=== PATIENT | female | born 1980 | race Hispanic/Latino ===

== ENCOUNTER 2018-05-28 21:55 | Emergency (ER) | payer OTHER ==
--- OUTSIDE RECORDS SUMMARY | 2018-05-28 21:58 | XMS REPORT ---
:1980 Author Organization eClinicalWorks Care Team Providers Name Role Phone Airam Lopez Provider Role Unavailable Allergies, Adverse Reactions, Alerts Substance Reaction Event Type N.K.D.A. Info Not Available Non Drug Allergy Problems Problem Type Condition Code Onset Dates Condition Status Problem Depression with anxiety F41.8 Active Problem Primary insomnia F51.01 Active Problem Allergic rhinitis J30.9 Active Assessment Encounter for general adult medical Z00.00 Active examination without abnormal findings Problem BMI 30.0-30.9,adult Z68.30 Active Medications Medication Code Code Instructions Start End Status Dosage System Date Date Metoprol[place] [facility] [place] 54113241899 25 MG Orally Active 1 tablet with Tartrate Twice a day food Clonazepam [facility] [place] 26143120506 0.5 MG Orally Active 1 tablet at Once a day bedtime Triamcinolone [facility] [place] 18847274470 0.1 % August 17, Active 1 application Acetonide Externally 2018 to affected Twice a day area Results No Known Results Summary Purpose eClinicalWorks Submission
--- OUTSIDE RECORDS SUMMARY | 2018-05-28 21:58 | XMS REPORT ---
:1980 Author Organization eClinicalWorks Care Team Providers Name Role Phone Airam Lopez Provider Role Unavailable Allergies No Known Allergies Problems Problem Type Condition Code Onset Dates Condition Status Problem Primary insomnia F51.01 Active Problem BMI 30.0-30.9,adult Z68.30 Active Problem Depression with anxiety F41.8 Active Medications No Known Medications Results No Known Results Summary Purpose eClinicalJetlore Submission
--- OUTSIDE RECORDS SUMMARY | 2018-05-28 21:58 | XMS REPORT ---
:1980 Author Organization eClinicalWorks Care Team Providers Name Role Phone [place] Provider Role Unavailable Allergies No Known Allergies Problems Problem Type Condition Code Onset Dates Condition Status Problem Depression with anxiety F41.8 Active Problem Primary insomnia F51.01 Active Problem Allergic rhinitis J30.9 Active Problem BMI 30.0-30.9,adult Z68.30 Active Medications No Known Medications Results No Known Results Summary Purpose eClinicalWorks Submission
--- OUTSIDE RECORDS SUMMARY | 2018-05-28 21:58 | XMS REPORT ---
:1980 Author Organization eClinicalWorks Care Team Providers Name Role Phone Airam Lopez Provider Role Unavailable Allergies, Adverse Reactions, Alerts Substance Reaction Event Type N.K.D.A. Info Not Available Non Drug Allergy Problems Problem Type Condition Code Onset Dates Condition Status Problem Primary insomnia F51.01 Active Problem BMI 30.0-30.9,adult Z68.30 Active Problem Depression with anxiety F41.8 Active Assessment Acute tonsillitis due to other J03.80 Active specified organisms Assessment Depression with anxiety F41.8 Active Assessment Other specified bacterial agents as B96.89 Active the cause of diseases classified elsewhere Medications Medication Code Code Instructions Start End Status Dosage System Date Date Duloxetine HCl ND 66627899355 30 MG Orally Nov 02, Active 1 capsule Once a day 2017 Fluconazole ND 21328568044 150 MG Orally Nov 02Oct Active 1 tablet Once a day 2017 Triamcinolone ND 05722110585 0.1 % August 17 1 application Acetonide Externally 2018 to affected Twice a day area Amoxicillin ND 24604205945 875 MG Orally Nov 02Oct Active 1 tablet every 12 hrs 2017 Results Name Result Date Reference Range Unit Abnormality Flag STREP A RAPID ----Result N [id number] Summary Purpose eClinicalWorks Submission
--- OUTSIDE RECORDS SUMMARY | 2018-05-28 21:58 | XMS REPORT ---
:1980 Author Organization eClinicalWorks Care Team Providers Name Role Phone Airam Lopez Provider Role Unavailable Allergies, Adverse Reactions, Alerts Substance Reaction Event Type N.K.D.A. Info Not Available Non Drug Allergy Problems Problem Type Condition Code Onset Dates Condition Status Problem Primary insomnia F51.01 Active Problem BMI 30.0-30.9,adult Z68.30 Active Problem Depression with anxiety F41.8 Active Assessment Depression with anxiety F41.8 Active Medications Medication Code Code Instructions Start End Status Dosage System Date Date Duloxetine HCl [facility] 50400838720 30 MG Orally Nov 02, Active 1 capsule Once a day 2017 Metoprolol ND 81367430277 25 MG Orally Active 1 tablet with Tartrate Twice a day food Triamcinolone [facility] 81947977548 0.1 % August 17, Active 1 application Acetonide Externally 2018 to affected Twice a day area BusPIRone HCl ND 92890796992 5 MG Orally Sept Active 1 tablet Twice a day 2017 Clonazepam [facility] 93942501982 0.5 MG Orally Active 1 tablet at Once a day bedtime Results No Known Results Summary Purpose eClinicalWorks Submission
--- OUTSIDE RECORDS SUMMARY | 2018-05-28 21:58 | XMS REPORT ---
:1980 Author Organization eClinicalWorks Care Team Providers Name Role Phone Airam Lopez Provider Role Unavailable Allergies, Adverse Reactions, Alerts Substance Reaction Event Type N.K.D.A. Info Not Available Non Drug Allergy Problems Problem Type Condition Code Onset Dates Condition Status Problem BMI 30.0-30.9,adult Z68.30 Active Assessment Eczema, unspecified type L30.9 Active Problem Primary insomnia F51.01 Active Assessment BMI 30.0-30.9,adult Z68.30 Active Assessment Primary insomnia F51.01 Active Medications Medication Code Code Instructions Start End Status Dosage System Date Date Triamcinolone [facility] 87271457870 0.1 % August 17, Active 1 application Acetonide Externally 2018 to affected Twice a day area Results No Known Results Summary Purpose eClinicalWorks Submission
--- OUTSIDE RECORDS SUMMARY | 2018-05-28 21:58 | XMS REPORT ---
:1980 Author Organization eClinicalWorks Care Team Providers Name Role Phone Airam Lopez Provider Role Unavailable Allergies, Adverse Reactions, Alerts Substance Reaction Event Type N.K.D.A. Info Not Available Non Drug Allergy Problems Problem Type Condition Code Onset Dates Condition Status Problem Primary insomnia F51.01 Active Problem BMI 30.0-30.9,adult Z68.30 Active Problem Depression with anxiety F41.8 Active Assessment Fever, unspecified fever cause R50.9 Active Assessment Tonsillitis J03.90 Active Medications Medication Code Code Instructions Start End Status Dosage System Date Date Metoprolol [facility] 12624597670 25 MG Orally Active 1 tablet with Tartrate Twice a day food Duloxetine HCl [facility] 42167993386 30 MG Orally Active 1 capsule Once a day Clonazepam [facility] 13795009096 0.5 MG Orally Active 1 tablet at Once a day bedtime BusPIRone HCl [facility] 54063928856 5 MG Orally Sept Active 1 tablet Twice a day [address] [facility] 73977889391 875 MG Orally Dec 19Dec Active 1 tablet every 12 hrs [address] [facility] 51654562064 0.1 % August 17, Active 1 application Acetonide Externally 2018 to affected Twice a day area Results Name Result Date Reference Range Unit Abnormality Flag Rapid Strep Summary Purpose eClinicalWorks Submission
[2018-05-29] MEDS ORDERED: MECLIZINE HCL 12.5 MG TAB ONE (02:04)
[2018-05-29 02:21] LABS: Absolute Lymphocytes (CBC) 2.1 K/uL (0.7-4.9); Absolute Monocytes 0.5 K/uL (0.1-1.3); Absolute Neutrophil 4.7 K/uL (1.8-8.0); Basophils % 0.6 % (0-1.3); Hematocrit 39.9 % (36.0-45.0); Lymphocytes % 27.6 % (15.3-44.8); MPV 8.6 fL (7.6-11.3); Monocytes % 6.8 % (3.3-12.3); RBC Red Blood Cell Count 4.52 M/uL (3.86-4.86)
[2018-05-29 02:57] LABS: ALT/SGPT 23 U/L (12-78); AST/SGOT 14 U/L (15-37); Albumin 3.8 g/dL (3.4-5.0); Alkaline Phosphatase 79 U/L (45-117); BUN Blood Urea Nitrogen 14 mg/dL (7-18); Bicarbonate 25 mmol/L (21-32); Bilirubin Direct < 0.1 mg/dL (0-0.2); Bilirubin Total 0.2 mg/dL (0.2-1.0); Glucose Level 103 mg/dL (74-106); Potassium 3.5 mmol/L (3.5-5.1); Sodium Level 141 mmol/L (136-145); Troponin (Emerg Dept Use Only) < 0.02 ng/mL (0.0-0.045)
[2018-05-29 03:33] LABS: Urine Blood NEGATIVE (NEG); Urine Glucose NEGATIVE (NEG); Urine Protein NEGATIVE (NEG); Urine pH 5.5 (5.0-7.0)
--- NOTE | 2018-05-29 05:49 | ER ---
Nurse's Notes [facility] Name: Blaire Horowitz Age: 37 yrs Sex: Female : 1980 Arrival Date: 05/28/2018 Time: 22:09 Bed 17 Private MD: Diagnosis: Dizziness and giddiness;Chest pain, unspecified Presentation: 05/28 22:31 Presenting complaint: Patient states: Pt reports she has been having elevated blood ea pressure with tingling left side of the face that's started today. Reports she has been having vertigo when she lays down. Transition of care: patient was not received from another setting of care. Onset of symptoms. Risk Assessment: Do you want to hurt yourself or someone else? Patient reports no desire to harm self or others. Initial Sepsis Screen: Does the patient meet any 2 criteria? No. Patient's initial sepsis screen is negative. Does the patient have a suspected source of infection? No. Patient's initial sepsis screen is negative. Care prior to arrival: None. 22:31 Method Of Arrival: Ambulatory ea 22:31 Acuity: DAVI 3 ea Triage Assessment: 22:34 General: Appears uncomfortable, Behavior is calm, cooperative, appropriate for age. ea Pain:. Pain: Denies pain. Neuro: Level of Consciousness is awake, alert, obeys commands, Oriented to person, place, time, situation. Cardiovascular: Patient's skin is warm and dry. Respiratory: Airway is patent Respiratory effort is even, unlabored, Respiratory pattern is regular, symmetrical. 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 - Social history:: Smoking status: Patient/guardian denies using tobacco. - Ebola Screening: : No symptoms or risks identified at this time. - Family history:: not pertinent. - Hospitalizations: : No recent hospitalization is reported. Screenin/12 00:58 Abuse screen: Denies threats or abuse. Denies injuries from another. Nutritional ed1 screening: No deficits noted. Tuberculosis screening: No symptoms or risk factors identified. Fall Risk None identified. Assessment: 00:58 General: Appears in no apparent distress. Behavior is calm, cooperative. Pain: Denies ed1 pain. Neuro: Level of Consciousness is awake, alert, obeys commands, Oriented to person, place, time, situation, Reports dizziness. Cardiovascular: Denies chest pain, Heart tones S1 S2 present. Respiratory: Airway is patent Respiratory effort is even, unlabored, Respiratory pattern is regular, symmetrical, Breath sounds are clear bilaterally. GI: Abdomen is non-distended, Bowel sounds present X 4 quads. Abd is soft and non tender X 4 quads. : No signs and/or symptoms were reported regarding the genitourinary system. EENT: No signs and/or symptoms were reported regarding the EENT system. Derm: Skin is intact, is healthy with good turgor, Skin is dry, Skin is normal, Skin temperature is warm. 02:44 Reassessment: Patient appears in no apparent distress at this time. Patient and/or ed1 family updated on plan of care and expected duration. Pain level reassessed. Patient is alert, oriented x 3, equal unlabored respirations, skin warm/dry/pink. Patient denies pain at this time. Patient states symptoms have not improved. 03:45 Reassessment: Patient appears in no apparent distress at this time. No changes from ed1 previously documented assessment. Patient and/or family updated on plan of care and expected duration. Pain level reassessed. Patient is alert, oriented x 3, equal unlabored respirations, skin warm/dry/pink. 04:49 Reassessment: Patient appears in no apparent distress at this time. No changes from rr5 previously documented assessment. Patient and/or family updated on plan of care and expected duration. Pain level reassessed. Patient is alert, oriented x 3, equal unlabored respirations, skin warm/dry/pink. 06:14 Reassessment: Patient appears in no apparent distress at this time. Patient and/or ed1 family updated on plan of care and expected duration. Pain level reassessed. Patient is alert, oriented x 3, equal unlabored respirations, skin warm/dry/pink. Patient states feeling better. Patient states symptoms have improved. Vital Signs: 05/28 22:35 BP 123 / 95; Pulse 103; Resp 18; Temp 97.2; Pulse Ox 98% on R/A; Weight 70.31 kg; ea Height 5 ft. 2 in. (157.48 cm); 03/12 00:58 BP 120 / 79; Pulse 95; Resp 17; Pulse Ox 100% on R/A; Pain 0/10; ed1 02:44 BP 119 / 83; Pulse 79; Resp 18; Pulse Ox 99% on R/A; Pain 0/10; ed1 03:45 BP 125 / 76; Pulse 80; Resp 17; Pulse Ox 99% on R/A; Pain 0/10; ed1 04:49 BP 128 / 76; Pulse 73; Resp 16; Pulse Ox 99% on R/A; Pain 0/10; rr5 06:14 BP 124 / 79; Pulse 81; Resp 17; Temp 97.2(O); Pulse Ox 99% on R/A; Pain 0/10; ed1 03/11 22:35 Body Mass Index 28.35 (70.31 kg, 157.48 cm) ea ED Course: 05/28 22:09 Patient arrived in ED. am2 22:33 Triage completed. ea 22:35 Arm band placed on right wrist. Patient placed in waiting room. ea 03/12 01:03 Osbaldo Fleming MD is Attending Physician. wa 01:07 Lilliana Massey, OCTAVIO is Primary Nurse. ed1 02:11 Inserted saline lock: 20 gauge in right antecubital area, using aseptic technique. ed1 Blood collected. Patient maintains SpO2 saturation greater than 95% on room air. 02:23 Chest Pa And Lat (2 Views) XRAY In Process Unspecified. EDMS 02:27 Patient moved to radiology via wheelchair. kw 02:27 X-ray completed. Patient tolerated procedure well. kw 02:27 Patient moved back from radiology. kw 04:00 CT Head Brain wo Cont In Process Unspecified. EDMS 05:47 Adama Argueta MD is Referral Physician. wa 06:14 Patient has correct armband on for positive identification. vehicle monitor technician on. Pulse ed1 ox on. NIBP on. 06:14 No provider procedures requiring assistance completed. IV discontinued, intact, ed1 bleeding controlled, No redness/swelling at site. Pressure dressing applied. Administered Medications: 02:31 Drug: Meclizine 25 mg Route: PO; rr5 06:17 Follow up: Response: No adverse reaction; Marked relief of symptoms ed1 Outcome: 05:48 Discharge ordered by MD. alfaro 06:14 Discharged to home ambulatory. ed1 06:14 Condition: good 06:14 Discharge instructions given to patient, Instructed on discharge instructions, follow up and referral plans. medication usage, Demonstrated understanding of instructions, follow-up care, medications, Prescriptions given X 3. 06:18 Patient left the ED. ed1 Signatures: Dispatcher [employer] EDMS Lilliana Massey, RN RN ed1 Yocasta Alegre Amanda am2 Heather Jim RN RN ea Osbaldo Fleming MD MD wa Roque, Raymond RN RN rr5
--- NOTE | 2018-05-29 05:49 | EDPHYS ---
Physician Documentation [facility] Name: Blaire Horowitz Age: 37 yrs Sex: Female : 1980 Arrival Date: 05/28/2018 Time: 22:09 Bed 17 Private MD: ED Physician Osbaldo Fleming HPI: 05/29 03:51 This 37 yrs old Female presents to ER via Ambulatory with complaints of wa Dizziness, Chest Pain. 03:51 The patient presents with sense of spinning, when turns head to left. Onset: The wa symptoms/episode began/occurred 5 day(s) ago. Context: occurred at home, occurred while the patient was cannot recall. just prior to the episode the patient experienced no apparent symptoms. Modifying factors: The symptoms are alleviated by nothing, the symptoms are aggravated by movement of head, to the left. Associated signs and symptoms: Pertinent positives: chest pain, sensation of fullness in L ear, Pertinent negatives: agitation, ataxia, blurred vision, diaphoresis, head injury, headache, nausea, near-syncope, numbness, palpitations, seizure, syncope, tingling, vomiting. Severity of symptoms: At their worst the symptoms were moderate in the emergency department the symptoms have improved moderately. Patient's baseline: Neuro: alert and fully oriented, Motor: no deficits, Ambulation: walks without assistance, Speech: normal, The patient has a previous history of none. The patient has not experienced similar symptoms in the past. The patient has not recently seen a physician. vague description of chest pain. states last a few min at a time. mid sternal. denies CP at this presentation. 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 - Social history:: Smoking status: Patient/guardian denies using tobacco. - Ebola Screening: : No symptoms or risks identified at this time. - Family history:: not pertinent. - Hospitalizations: : No recent hospitalization is reported. ROS: 05/29 03:54 Constitutional: Negative for fever, chills, and weight loss, Eyes: Negative for injury, wa pain, redness, and discharge, ENT: Negative for injury, pain, and discharge, Neck: Negative for injury, pain, and swelling, Respiratory: Negative for shortness of breath, cough, wheezing, and pleuritic chest pain, Abdomen/GI: Negative for abdominal pain, nausea, vomiting, diarrhea, and constipation, Back: Negative for injury and pain, : Negative for injury, bleeding, discharge, and swelling, MS/Extremity: Negative for injury and deformity, Skin: Negative for injury, rash, and discoloration, Neuro: Negative for headache, weakness, numbness, tingling, and seizure. Cardiovascular: Positive for chest pain, Negative for edema, orthopnea, palpitations, paroxysmal nocturnal dyspnea. Respiratory: Negative for cough, shortness of breath. Neuro: Positive for dizziness, Negative for altered mental status, tremor, visual changes, weakness. All other systems are negative. Exam: 03:55 Constitutional: This is a well developed, well nourished patient who is awake, alert, wa and in no acute distress. Head/Face: Normocephalic, atraumatic. Eyes: Pupils equal round and reactive to light, extra-ocular motions intact. Lids and lashes normal. Conjunctiva and sclera are non-icteric and not injected. Cornea within normal limits. Periorbital areas with no swelling, redness, or edema. ENT: Nares patent. No nasal discharge, no septal abnormalities noted. Tympanic membranes are normal and external auditory canals are clear. Oropharynx with no redness, swelling, or masses, exudates, or evidence of obstruction, uvula midline. Mucous membranes moist. Neck: Trachea midline, no thyromegaly or masses palpated, and no cervical lymphadenopathy. Supple, full range of motion without nuchal rigidity, or vertebral point tenderness. No Meningismus. Chest/axilla: Normal chest wall appearance and motion. Nontender with no deformity. No lesions are appreciated. Respiratory: Lungs have equal breath sounds bilaterally, clear to auscultation and percussion. No rales, rhonchi or wheezes noted. No increased work of breathing, no retractions or nasal flaring. Abdomen/GI: Soft, non-tender, with normal bowel sounds. No distension or tympany. No guarding or rebound. No evidence of tenderness throughout. Back: No spinal tenderness. No costovertebral tenderness. Full range of motion. Skin: Warm, dry with normal turgor. Normal color with no rashes, no lesions, and no evidence of cellulitis. MS/ Extremity: Pulses equal, no cyanosis. Neurovascular intact. Full, normal range of motion. Psych: Awake, alert, with orientation to person, place and time. Behavior, mood, and affect are within normal limits. 03:55 Cardiovascular: Rate: normal, Rhythm: regular, Pulses: no pulse deficits are appreciated, Heart sounds: normal, Edema: is not appreciated, JVD: is not appreciated. 03:55 Neuro: Orientation: is normal, Mentation: is normal, Cranial nerves: grossly normal, Cerebellar function: is grossly normal, Motor: is normal, Gait: is steady. Vital Signs: 05/28 22:35 BP 123 / 95; Pulse 103; Resp 18; Temp 97.2; Pulse Ox 98% on R/A; Weight 70.31 kg; ea Height 5 ft. 2 in. (157.48 cm); 05/29 00:58 BP 120 / 79; Pulse 95; Resp 17; Pulse Ox 100% on R/A; Pain 0/10; ed1 02:44 BP 119 / 83; Pulse 79; Resp 18; Pulse Ox 99% on R/A; Pain 0/10; ed1 03:45 BP 125 / 76; Pulse 80; Resp 17; Pulse Ox 99% on R/A; Pain 0/10; ed1 04:49 BP 128 / 76; Pulse 73; Resp 16; Pulse Ox 99% on R/A; Pain 0/10; rr5 06:14 BP 124 / 79; Pulse 81; Resp 17; Temp 97.2(O); Pulse Ox 99% on R/A; Pain 0/10; ed1 05/28 22:35 Body Mass Index 28.35 (70.31 kg, 157.48 cm) ea MDM: 01:03 Patient medically screened. wa 03:56 Differential diagnosis: vertigo? r/o acute intracranial process. CXR. cardiacs. check wa d-dimer. reassess. pt in no distress. no nystagmus on exam. cerebellar exam wnl.. Data reviewed: vital signs, nurses notes. 05:46 Test interpretation: by ED physician or midlevel provider: EKG: HR 104. sinus tach. CXR wa nml. labs nml. head CT nml. Response to treatment: the patient's symptoms have markedly improved after treatment, states meclizine helped her. 05/29 01:50 Order name: Basic Metabolic Panel; Complete Time: 03:48 la 05/29 01:50 Order name: CBC with Diff; Complete Time: 03:48 la 05/29 01:50 Order name: LFT's; Complete Time: 03:48 la 05/29 01:50 Order name: Troponin (emerg Dept Use Only); Complete Time: 03:48 la 05/29 01:50 Order name: D-Dimer; Complete Time: 03:48 la 05/29 02:29 Order name: Urine Dipstick--Ancillary (enter results); Complete Time: 03:48 ms 05/29 01:50 Order name: EKG; Complete Time: 01:51 la 05/29 01:50 Order name: Cardiac monitoring; Complete Time: 02:26 la 05/29 01:50 Order name: EKG - Nurse/Tech; Complete Time: 01:58 la 05/29 01:50 Order name: IV Saline Lock; Complete Time: 02:26 la 05/29 01:50 Order name: Chest Pa And Lat (2 Views) XRAY la 05/29 01:50 Order name: CT Head Brain wo Cont la 05/29 02:29 Order name: Urine --Ancillary (enter results); Complete Time: 03:47 ms 05/29 01:50 Order name: Labs collected and sent; Complete Time: 02:26 la 05/29 01:50 Order name: O2 Sat Monitoring; Complete Time: 02:26 la Administered Medications: 02:31 Drug: Meclizine 25 mg Route: PO; rr5 06:17 Follow up: Response: No adverse reaction; Marked relief of symptoms ed1 Disposition: 05/29/18 05:48 Discharged to Home. Impression: Dizziness and giddiness, Chest pain, unspecified. - Condition is Stable. - Discharge Instructions: Nonspecific Chest Pain, Dizziness. - Prescriptions for Zithromax Z- Maik 250 mg Oral Tablet - take 1 tablet by ORAL route as directed for 5 days Day 1 - take two (2) tablets one time. Day 2, 3, 4 , 5 take one (1) tablet once daily.; 6 tablet. Meclizine 25 mg Oral Tablet - take 1 tablet by ORAL route every 8 hours As needed; 30 tablet. Diflucan 150 mg Oral Tablet - take 1 tablet by ORAL route one time for 1 day; 1 tablet. - Medication Reconciliation Form, Thank You Letter, Antibiotic Education, Prescription Opioid Use form. - Follow up: Adama Argueta MD; When: 2 - 3 days; Reason: Recheck today's complaints. - Problem is new. - Symptoms have improved. - Notes: follow up with the neurologist for dizziness. see your doctor as well if chest pain persists. return to ER for any worrisome worsening concerns. Signatures: Dispatcher [employer] EDMS Lilliana Massey RN RN ed1 Heather Jim RN RN ea Osbaldo Fleming MD MD wa Roque, Raymond RN RN rr5 Corrections: (The following items were deleted from the chart) 06:18 05:48 05/29/2018 05:48 Discharged to Home. Impression: Dizziness and giddiness; Chest ed1 pain, unspecified. Condition is Stable. Forms are Medication Reconciliation Form, Thank You Letter, Antibiotic Education, Prescription Opioid Use. Follow up: Adama Argueta; When: 2 - 3 days; Reason: Recheck today's complaints. Problem is new. Symptoms have improved. wa
[2018-05-29 06:29] VITALS: TEMP 97.2
[2018-05-29 06:32] VITALS: O2SAT 99
[2018-05-29 06:36] VITALS: BP 124/79
--- NOTE | 2018-05-29 09:19 | RAD REPORT ---
EXAM DESCRIPTION: RAD - Chest Pa And Lat (2 Views) - 05/29/2018 2:24 am CLINICAL HISTORY: Chest pain, hypertension COMPARISON: January 2014 TECHNIQUE: PA and lateral views of the chest were obtained. FINDINGS: The lungs are clear. Heart size is normal and central vasculature is within normal limit s. No pleural effusion or pneumothorax seen. No acute bony finding noted. No aortic abnormality. IMPRESSION: No acute cardiopulmonary process. No suspicious change from comparison.
--- NOTE | 2018-05-29 12:12 | RAD REPORT ---
EXAM DESCRIPTION: CT - Head Brain Wo Cont - 05/29/2018 4:00 am CLINICAL HISTORY: The patient is 65 years old and is Female; RUQ abd pain TECHNIQUE: Axial computed tomography images of the abdomen and pelvis with intravenous contrast. S agittal and coronal reformatted images were created and reviewed. This CT exam was performed using one or more of the following dose reduction techniques: automated exposure control, adjustment of t he mA and/or kV according to patient size, and/or use of iterative reconstruction technique. COMPARISON: No relevant prior studies available. FINDINGS: Lung bases: Bilateral mild centrilobular emphysematous changes of the lung bases is noted. ABDOMEN: Liver: The liver is shrunken with a nodular contour. Gallbladder and bile ducts: The gallbladder is decompressed. Pancreas: No ductal dilation. No mass. Spleen: The spleen is enlarged. Adrenals: Unremarkable. No mass. Kidneys and ureters: Lobular contour to both kidneys is noted. The kidneys enhance symmetrically . No obstructing renal or ureteral calculus is seen. Stomach and bowel: The stomach is moderately fluid filled. The small bowel is normal in caliber. Stool is present throughout the colon. Scattered colonic diverticula are noted without surrounding i nflammation. There is no bowel obstruction. PELVIS: Appendix: The appendix is normal in caliber without surrounding inflammation. Bladder: The bladder is well distended. Reproductive: Unremarkable as visualized. ABDOMEN and PELVIS: Intraperitoneal space: Unremarkable. No free air. No significant fluid collection. Bones/joints: There are degenerative changes of the spine. Broad-based disc bulges from L4 throu gh S1 are present with associated neural foraminal narrowing, most prominent at L5-S1. Soft tissues: The soft tissues are normal. Vasculature: Atherosclerosis of the vasculature is present. The vessels are normal in caliber. No abdominal aortic aneurysm. Lymph nodes: Unremarkable. No enlarged lymph nodes. IMPRESSION: 1. Cirrhotic liver, splenomegaly, and findings suggestive of portal hypertension. 2. Colonic diverticulosis. Electronically signed by: Tawanna Angeles MD 05/29/2018 3:04 AM CDT Due to temporary technical issues with the PACS/Fluency reporting system, reports are being signed by the in house radiologist as a courtesy to ensure prompt reporting. The interpreting radiologist is f ully responsible for the content of the report.
--- NOTE | 2018-05-31 10:28 | EKG ---
Test Date: 2018-05-28 Test Time: 22:35:39 Dip Stand Loader: MAYE MEASUREMENT RESULTS: Intervals: Rate: 104 MN: 150 QRSD: 68 QT: 326 QTc: 428 Big Arm: P: 39 MN: 150 QRS: 6 T: 25 INTERPRETIVE STATEMENTS: Sinus tachycardia Cannot rule out Anterior infarct, age undetermined Abnormal ECG Compared to ECG 01/28/2014 01:12:10 Questionable Myocardial infarct finding now present Sinus rhythm no longer present Electronically Signed On 05-29-18 12:40:44 CDT by Channing Anders
== END 2018-05-29 06:18 | disposition home or self-care (01) ==
LOC: ER 21:55
DX: R42 Dizziness and giddiness (principal); R07.9 Chest pain, unspecified
CPT/HCPCS: 36415; 70450; 71046; 80048; 80076; 81003; 81025; 84484; 85025; 85379; 93005; 99285

== ENCOUNTER 2018-10-04 18:52 | Emergency (ER) | payer OTHER ==
--- OUTSIDE RECORDS SUMMARY | 2018-10-04 18:55 | XMS REPORT ---
[...] Dosage System Date Date Duloxetine HCl ND 71551600636 30 MG Orally Nov 02, Active 1 capsule Once a day 2017 Fluconazole ND 34160781928 150 MG Orally Nov 02Oct Active 1 tablet Once a day 2017 Triamcinolone ND 10063568561 0.1 % August 17 1 application Acetonide Externally 2018 to affected Twice a day area Amoxicillin ND 52625031775 875 MG Orally Nov 02Oct Active 1 tablet every 12 hrs 2017 Results Name Result Date Reference Range Unit Abnormality Flag STREP A RAPID ----Result N [id number] Summary Purpose eClinicalWorks Submission
--- OUTSIDE RECORDS SUMMARY | 2018-10-04 18:55 | XMS REPORT ---
:1980 Author Organization eClinicalWorks Care Team Providers Name Role Phone Airam Lopez Provider Role Unavailable Allergies No Known Allergies Problems Problem Type Condition Code Onset Dates Condition Status Problem Primary insomnia F51.01 Active Problem BMI 30.0-30.9,adult Z68.30 Active Problem Depression with anxiety F41.8 Active Medications No Known Medications Results No Known Results Summary Purpose eClinicalDemo Lesson Submission
--- OUTSIDE RECORDS SUMMARY | 2018-10-04 18:55 | XMS REPORT ---
[...] End Status Dosage System Date Date Metoprolol [facility] 68075769776 25 MG Orally Active 1 tablet with Tartrate Twice a day food Clonazepam [facility] 64272159313 0.5 MG Orally Active 1 tablet at Once a day bedtime Triamcinolone [facility] 08231917518 0.1 % August 17, Active 1 application Acetonide Externally 2018 to affected Twice a day area Results No Known Results Summary Purpose eClinicalWorks Submission
--- OUTSIDE RECORDS SUMMARY | 2018-10-04 18:55 | XMS REPORT ---
[...] End Status Dosage System Date Date Triamcinolone [facility] 20269890397 0.1 % August 17, Active 1 application Acetonide Externally 2018 to affected Twice a day area Results No Known Results Summary Purpose eClinicalWorks Submission
--- OUTSIDE RECORDS SUMMARY | 2018-10-04 18:55 | XMS REPORT ---
:1980 [facility] Address [address] [place] [address] Dr. Perez [address] [place] [id number] Care Team Providers Name Role Phone Unavailable Unavailable Unavailable Problems This patient has no known problems. Allergies, Adverse Reactions, Alerts This patient has no known allergies or adverse reactions. Medications This patient has no known medications. Encounters Start End Encounter Admission Attending Care Care Encounter Date/Time Date/Time Type Type Clinicians Facility Department ID 2018-06-29 2018-06-29 Outpatient [id number] 12:20:00 12:20:00
--- OUTSIDE RECORDS SUMMARY | 2018-10-04 18:55 | XMS REPORT ---
[...] Status Dosage System Date Date Duloxetine HCl [facility] 86595973622 30 MG Orally Nov 02, Active 1 capsule Once a day 2017 Metoprolol ND 65211628028 25 MG Orally Active 1 tablet with Tartrate Twice a day food Triamcinolone [facility] 78434210665 0.1 % August 17, Active 1 application Acetonide Externally 2018 to affected Twice a day area BusPIRone HCl ND 16348399673 5 MG Orally Sept Active 1 tablet Twice a day [address] [facility] 95461487600 0.5 MG Orally Active 1 tablet at Once a day bedtime Results No Known Results Summary Purpose eClinicalWorks Submission
--- OUTSIDE RECORDS SUMMARY | 2018-10-04 18:55 | XMS REPORT ---
[...] End Status Dosage System Date Date Metoprolol [facility] 47373489028 25 MG Orally Active 1 tablet with Tartrate Twice a day food Duloxetine HCl [facility] 01794118271 30 MG Orally Active 1 capsule Once a day Clonazepam [facility] 51338894744 0.5 MG Orally Active 1 tablet at Once a day bedtime BusPIRone HCl [facility] 12878405721 5 MG Orally Sept Active 1 tablet Twice a day 2017 Amoxicillin [facility] 74873013032 875 MG Orally Dec 19Dec Active 1 tablet every 12 hrs 2017 Triamcinolone [facility] 99989404433 0.1 % August 17, Active 1 application Acetonide Externally 2018 to affected Twice a day area Results Name Result Date Reference Range Unit Abnormality Flag Rapid Strep Summary Purpose eClinicalWorks Submission
--- OUTSIDE RECORDS SUMMARY | 2018-10-04 18:55 | XMS REPORT ---
:1980 Author Organization eClinicalWorks Care Team Providers Name Role Phone HoughtonAiram Provider Role Unavailable Allergies No Known Allergies Problems Problem Type Condition Code Onset Dates Condition Status Problem Depression with anxiety F41.8 Active Problem Primary insomnia F51.01 Active Problem Allergic rhinitis J30.9 Active Problem BMI 30.0-30.9,adult Z68.30 Active Medications No Known Medications Results No Known Results Summary Purpose eClinicalWorks Submission
[2018-10-04 19:49] LABS: Absolute Lymphocytes (CBC) 1.8 K/uL (0.7-4.9); Basophils % 0.4 % (0-1.3); Eosinophils % 1.8 % (0-4.4); Hematocrit 40.1 % (36.0-45.0); Lymphocytes % 22.5 % (15.3-44.8); MPV 8.3 fL (7.6-11.3); RBC Red Blood Cell Count 4.38 M/uL (3.86-4.86)
[2018-10-04 20:04] LABS: Albumin 3.4 g/dL (3.4-5.0); Bilirubin Direct 0.1 mg/dL (0-0.2); Bilirubin Total 0.2 mg/dL (0.2-1.0); Potassium 3.4 mmol/L (3.5-5.1); Protein, Total 7.7 g/dL (6.4-8.2)
[2018-10-04 20:13] LABS: Urine Blood 2+ (NEG); Urine Glucose NEGATIVE (NEG); Urine Protein NEGATIVE (NEG); Urine Specific Gravity 1.025 (1.005-1.030); Urine pH 6.5 (5.0-7.0)
[2018-10-04 20:38] LABS: Urine Bacteria 20-50 /HPF (<20); Urine Culture Reflex Order REFLEXED; Urine RBC 20-50 /HPF (NONE SEEN)
--- NOTE | 2018-10-04 20:46 | RAD REPORT ---
EXAM DESCRIPTION: CT - Abdomen Pelvis W Contrast - 10/04/2018 8:21 pm CLINICAL HISTORY: Abdominal pain/left lower quadrant pain COMPARISON: none. TECHNIQUE: Computed axial tomography of the abdomen pelvis was obtained. 100 cc Isovue-300 was admin istered intravenously. Oral contrast was not requested which limits evaluation of bowel. All CT scans are performed using dose optimization technique as appropriate and may include automated exposure control or mA/KV adjustment according to patient size. FINDINGS: The liver, spleen, pancreas, adrenal and kidneys appear unremarkable. There is no evidence of diverticulitis. Cholecystectomy IMPRESSION: No acute abnormality is displayed.
--- NOTE | 2018-10-04 21:32 | ER ---
Nurse's Notes [facility] Name: Blaire Horowitz Age: 38 yrs Sex: Female : 1980 Arrival Date: 10/04/2018 Time: 18:55 Bed 17 Private MD: Diagnosis: Abdominal and pelvic pain;Urinary tract infection, site not specified Presentation: 10/04 18:59 Presenting complaint: Patient states: LLQ pain for 4 months, Colonoscopy scheduled. aj Transition of care: patient was not received from another setting of care. Onset of symptoms was May 2018. 18:59 Method Of Arrival: Ambulatory 18:59 Acuity: DAVI 3 aj 19:39 Risk Assessment: Do you want to hurt yourself or someone else? Patient reports no jd3 desire to harm self or others. Initial Sepsis Screen: Does the patient meet any 2 criteria? No. Patient's initial sepsis screen is negative. Does the patient have a suspected source of infection? No. Patient's initial sepsis screen is negative. Care prior to arrival: None. Triage Assessment: 19:00 General: Appears in no apparent distress. comfortable, Behavior is calm, cooperative, aj appropriate for age. Pain: Complains of pain in left lower quadrant. Neuro: Level of Consciousness is awake, alert, obeys commands, Oriented to person, place, time, situation, Appropriate for age. Respiratory: Airway is patent Trachea midline Respiratory effort is even, unlabored, Respiratory pattern is regular, symmetrical. GI: Reports lower abdominal pain. Derm: Skin is intact, is healthy with good turgor, Skin is pink, warm \T\ dry. normal. 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 - Social history:: Smoking status: Patient/guardian denies using tobacco. - Ebola Screening: : Patient negative for fever greater than or equal to 101.5 degrees Fahrenheit, and additional compatible Ebola Virus Disease symptoms Patient denies exposure to infectious person Patient denies travel to an Ebola-affected area in the 21 days before illness onset No symptoms or risks identified at this time. Screenin:38 Abuse screen: Denies threats or abuse. Nutritional screening: No deficits noted. jd3 Tuberculosis screening: No symptoms or risk factors identified. Fall Risk IV access (20 points). Ambulatory Aid- None/Bed Rest/Nurse Assist (0 pts). Gait- Normal/Bed Rest/Wheelchair (0 pts) Mental Status- Oriented to own ability (0 pts). Total Li Fall Scale indicates No Risk (0-24 pts). Assessment: 19:37 General: Appears in no apparent distress. uncomfortable, Behavior is calm, cooperative, jd3 appropriate for age. Pain: Complains of pain in right lower quadrant and left lower quadrant Quality of pain is described as aching, crampy, tender. Neuro: Level of Consciousness is awake, alert, obeys commands, Oriented to person, place, time, situation. Cardiovascular: Capillary refill < 3 seconds Patient's skin is warm and dry. Respiratory: Airway is patent Respiratory effort is even, unlabored, Respiratory pattern is regular, symmetrical. GI: Abdomen is round non-distended, Bowel sounds present X 4 quads. Abd is soft X 4 quads Abdomen is tender to palpation in right lower quadrant and left lower quadrant Reports lower abdominal pain, nausea. : No signs and/or symptoms were reported regarding the genitourinary system. EENT: No signs and/or symptoms were reported regarding the EENT system. Derm: Skin is intact, Skin is dry, Skin is normal, Skin temperature is warm. Musculoskeletal: Circulation, motion, and sensation intact. Range of motion: intact in all extremities. 20:32 Reassessment: Patient appears in no apparent distress at this time. Patient and/or jd3 family updated on plan of care and expected duration. Pain level reassessed. Patient is alert, oriented x 3, equal unlabored respirations, skin warm/dry/pink. awaiting results. 21:47 Reassessment: Patient appears in no apparent distress at this time. Patient and/or jd3 family updated on plan of care and expected duration. Pain level reassessed. Patient is alert, oriented x 3, equal unlabored respirations, skin warm/dry/pink. awaiting fluids to finish before discharge. Vital Signs: 19:00 BP 141 / 103; Pulse 100; Resp 16; Temp 98.4; Pulse Ox 100% on R/A; Weight 73.94 kg; aj Height 5 ft. 2 in. (157.48 cm); 20:33 BP 137 / 93; Pulse 115; Resp 16 S; Pulse Ox 99% on R/A; Pain 3/10; jd3 21:46 BP 135 / 85; Pulse 103; Resp 16 S; Pulse Ox 99% on R/A; jd3 19:00 Body Mass Index 29.81 (73.94 kg, 157.48 cm) aj ED Course: 18:55 Patient arrived in ED. as 19:00 Triage completed. aj 19:00 Arm band placed on left wrist. Patient placed in an exam room. aj 19:04 Tani Roth PA is PHCP. [facility] 19:04 Mark Mercado MD is Attending Physician. jmm 19:30 Initial lab(s) drawn, by me, sent to lab. Urine collected: clean catch specimen, clear. bb Inserted saline lock: 20 gauge in right antecubital area, using aseptic technique. Blood collected. 19:34 Mac Levin, RN is Primary Nurse. jd3 19:39 Patient has correct armband on for positive identification. Placed in gown. Bed in low jd3 position. Call light in reach. Side rails up X 1. Adult w/ patient. 20:21 CT Abd/Pelvis - IV Contrast Only In Process Unspecified. EDMS 22:15 No provider procedures requiring assistance completed. IV discontinued, intact, jd3 bleeding controlled, No redness/swelling at site. Pressure dressing applied. Administered Medications: 21:24 Drug: NS 0.9% 1000 ml Route: IV; Rate: 1 bolus; Site: right antecubital; jd3 22:14 Follow up: Response: No adverse reaction; IV Status: Completed infusion; IV Intake: jd3 1000ml 21:24 Drug: Macrobid 100 mg Route: PO; jd3 22:14 Follow up: Response: No adverse reaction jd3 Intake: 22:14 IV: 1000ml; Total: 1000ml. jd3 Outcome: 21:32 Discharge ordered by . jmm 22:15 Discharged to home ambulatory, with family. jd3 22:15 Condition: stable 22:15 Discharge instructions given to patient, family, Instructed on discharge instructions, follow up and referral plans. medication usage, Demonstrated understanding of instructions, follow-up care, medications, Prescriptions given X 2. 22:16 Patient left the ED. jd3 Signatures: Dispatcher [employer] Kavya Holly, RN RN Tani Heaton PA PA jmm Martinez, Amelia as Ballard, Brenda, RN RN Mac Cisneros RN RN jd3
--- NOTE | 2018-10-04 21:32 | EDPHYS ---
Physician Documentation [facility] Name: Blaire Horowitz Age: 38 yrs Sex: Female : 1980 Arrival Date: 10/04/2018 Time: 18:55 Bed 17 Private MD: ED Physician Mark Mercado HPI: 10/04 19:15 This 38 yrs old Female presents to ER via Ambulatory with complaints of jmm Abdominal Pain, Constipation. 19:15 The patient presents with abdominal pain in the left lower quadrant. Onset: The jmm symptoms/episode began/occurred gradually, 4 month(s) ago. The symptoms do not radiate. Associated signs and symptoms: Pertinent positives: constipation. This is a 38 years old female with no chronic medical conditions that presents to the ED with complaints of left lower abdominal pain. Patient has a colonscopy scheduled. Patient states she was out in the heat today and did not stay well hydrated. Patient developed increased abdominal pain today. Patient states while in the ED she had a large bowel movement which alleviated most of her discomfort. . 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 - Social history:: Smoking status: Patient/guardian denies using tobacco. - Ebola Screening: : Patient negative for fever greater than or equal to 101.5 degrees Fahrenheit, and additional compatible Ebola Virus Disease symptoms Patient denies exposure to infectious person Patient denies travel to an Ebola-affected area in the 21 days before illness onset No symptoms or risks identified at this time. ROS: 19:15 Constitutional: Negative for fever, chills, and weight loss, Cardiovascular: Negative jmm for chest pain, palpitations, and edema, Respiratory: Negative for shortness of breath, cough, wheezing, and pleuritic chest pain. 19:15 Abdomen/GI: Positive for abdominal pain, constipation. 19:15 All other systems are negative. Exam: 19:15 Constitutional: This is a well developed, well nourished patient who is awake, alert, jmm and in no acute distress. Head/Face: atraumatic. Eyes: EOMI, no conjunctival erythema appreciated ENT: Moist Mucus Membranes Neck: Trachea midline, Supple Chest/axilla: Normal chest wall appearance and motion. Cardiovascular: Regular rate and rhythm. No edema appreciated Respiratory: Normal respirations, no respiratory distress appreciated 19:15 Abdomen/GI: Inspection: abdomen appears normal, Bowel sounds: normal, Palpation: soft, mild abdominal tenderness, in the right lower quadrant and left lower quadrant. 19:15 Back: ROM is normal. 19:15 Musculoskeletal/extremity: ROM: intact in all extremities. 19:15 Skin: Appearance: Color: normal in color. 19:15 Neuro: Orientation: is normal, Mentation: is normal, Memory: is normal. 19:15 Psych: Behavior/mood is pleasant, cooperative. Vital Signs: 19:00 BP 141 / 103; Pulse 100; Resp 16; Temp 98.4; Pulse Ox 100% on R/A; Weight 73.94 kg; aj Height 5 ft. 2 in. (157.48 cm); 20:33 BP 137 / 93; Pulse 115; Resp 16 S; Pulse Ox 99% on R/A; Pain 3/10; jd3 21:46 BP 135 / 85; Pulse 103; Resp 16 S; Pulse Ox 99% on R/A; jd3 19:00 Body Mass Index 29.81 (73.94 kg, 157.48 cm) aj MDM: 19:34 Patient medically screened. [facility] 21:29 Data reviewed: vital signs, nurses notes. Counseling: I had a detailed discussion with [facility] the patient and/or guardian regarding: the historical points, exam findings, and any diagnostic results supporting the discharge/admit diagnosis, lab results, radiology results, the need for outpatient follow up, to return to the emergency department if symptoms worsen or persist or if there are any questions or concerns that arise at home. ED course: Patient has decreased pain in the ED. Patient given IVF and abx in the ED. Patient is advised to follow up with gi for further evaluation. Patient was otherwise given strict return precautions. patient understood and agrees with the plan of care. . 10/04 19:15 Order name: Basic Metabolic Panel; Complete Time: 20:13 [facility] 10/04 19:15 Order name: CBC with Diff; Complete Time: 20:07 [facility] 10/04 19:15 Order name: Creatinine for Radiology; Complete Time: 20:07 [facility] 10/04 19:15 Order name: Hepatic Function; Complete Time: 20:13 [facility] 10/04 19:15 Order name: Lipase; Complete Time: 20:13 [facility] 10/04 19:49 Order name: Urine Microscopic Only; Complete Time: 20:47 [facility] 10/04 19:15 Order name: IV Saline Lock; Complete Time: 19:35 [facility] 10/04 19:15 Order name: Labs collected and sent; Complete Time: 19:35 [facility] 10/04 19:51 Order name: Urine Dipstick--Ancillary (enter results); Complete Time: 20:47 [facility] 10/04 19:51 Order name: Urine --Ancillary (enter results); Complete Time: 20:47 [facility] 10/04 20:02 Order name: CT Abd/Pelvis - IV Contrast Only; Complete Time: 20:47 [facility] 10/04 20:42 Order name: Urine Culture [facility] 10/04 19:15 Order name: Urine Dipstick-Ancillary (obtain specimen); Complete Time: 19:35 [facility] Administered Medications: 21:24 Drug: NS 0.9% 1000 ml Route: IV; Rate: 1 bolus; Site: right antecubital; jd3 22:14 Follow up: Response: No adverse reaction; IV Status: Completed infusion; IV Intake: jd3 1000ml 21:24 Drug: Macrobid 100 mg Route: PO; jd3 22:14 Follow up: Response: No adverse reaction jd3 Disposition: 10/05 06:49 Co-signature as Attending Physician, Mark Mercado MD I agree with the assessment and saranya plan of care. 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 Disposition: 10/04/18 21:32 Discharged to Home. Impression: Abdominal and pelvic pain, Urinary tract infection, site not specified. - Condition is Stable. - Discharge Instructions: Abdominal Pain, Adult, Urinary Tract Infection, Adult, Rehydration, Adult. - Prescriptions for Macrobid 100 mg Oral Capsule - take 1 capsule by ORAL route every 12 hours for 7 days; 14 capsule. Fluconazole 150 mg Oral Tablet - take 1 tablet by ORAL route once daily ONE PO AT COMPLETION OF ANTIBIOTICS, MAY REPEAT ONCE IN ONE WEEK IF NECESSARY; 2 tablet. - Medication Reconciliation Form, Thank You Letter, Antibiotic Education, Prescription Opioid Use form. - Follow up: Private Physician; When: 2 - 3 days; Reason: Recheck today's complaints, Continuance of care, Re-evaluation by your physician. Signatures: Dispatcher [employer] Kavya Holly, RN Mark Méndez MD MD cha Mickail, Joel, PA PA jmm Davies, Jonathon, RN RN jd3 Corrections: (The following items were deleted from the chart) 10/04 22:16 21:32 10/04/2018 21:32 Discharged to Home. Impression: Abdominal and pelvic pain; jd3 Urinary tract infection, site not specified. Condition is Stable. Forms are Medication Reconciliation Form, Thank You Letter, Antibiotic Education, Prescription Opioid Use. Follow up: Private Physician; When: 2 - 3 days; Reason: Recheck today's complaints, Continuance of care, Re-evaluation by your physician. brett
[2018-10-04] MEDS ORDERED: NA CHLORIDE 0.9% 1,000 ML ONE (21:35)
[2018-10-04] MEDS ORDERED: NITROFURAN MACRO 100 MG CAP PO ONE (21:35)
[2018-10-04 22:32] VITALS: O2SAT 99
[2018-10-04 22:34] VITALS: TEMP 98.4
[2018-10-04 22:35] VITALS: BP 135/85
== END 2018-10-04 22:16 | disposition home or self-care (01) ==
LOC: ER 18:52
DX: N39.0 Urinary tract infection, site not specified (principal)
CPT/HCPCS: 36415; 74177; 80048; 80076; 81003; 81015; 81025; 83690; 85025; 87086; 87088; 96360; 99284; J7030; Q9967

== ENCOUNTER 2018-10-13 14:20 | Emergency (ER) | payer OTHER ==
--- OUTSIDE RECORDS SUMMARY | 2018-10-13 14:22 | XMS REPORT ---
[...] Dosage System Date Date Duloxetine HCl ND 67870271580 30 MG Orally Nov 02, Active 1 capsule Once a day 2017 Fluconazole ND 60237500630 150 MG Orally Nov 02Oct Active 1 tablet Once a day 2017 Triamcinolone ND 37626391865 0.1 % August 17 1 application Acetonide Externally 2018 to affected Twice a day area Amoxicillin ND 17741147621 875 MG Orally Nov 02Oct Active 1 tablet every 12 hrs 2017 Results Name Result Date Reference Range Unit Abnormality Flag STREP A RAPID ----Result N [id number] Summary Purpose eClinicalWorks Submission
--- OUTSIDE RECORDS SUMMARY | 2018-10-13 14:22 | XMS REPORT ---
[...] Dosage System Date Date Duloxetine HCl [facility] 62196195011 30 MG Orally Nov 02, Active 1 capsule Once a day 2017 Metoprolol ND 98764605184 25 MG Orally Active 1 tablet with Tartrate Twice a day food Triamcinolone [facility] 71495561755 0.1 % August 17, Active 1 application Acetonide Externally 2018 to affected Twice a day area BusPIRone HCl ND 88892855049 5 MG Orally Sept Active 1 tablet Twice a day [address] [facility] 74218490784 0.5 MG Orally Active 1 tablet at Once a day bedtime Results No Known Results Summary Purpose eClinicalWorks Submission
--- OUTSIDE RECORDS SUMMARY | 2018-10-13 14:22 | XMS REPORT ---
:1980 Author Organization eClinicalWorks Care Team Providers Name Role Phone Airam Lopez Provider Role Unavailable Allergies No Known Allergies Problems Problem Type Condition Code Onset Dates Condition Status Problem Primary insomnia F51.01 Active Problem BMI 30.0-30.9,adult Z68.30 Active Problem Depression with anxiety F41.8 Active Medications No Known Medications Results No Known Results Summary Purpose eClinicalCrowdZone Submission
--- OUTSIDE RECORDS SUMMARY | 2018-10-13 14:22 | XMS REPORT ---
:1980 [facility] Address [address] [place] [address] Dr. Perez [address] [place] [id number] Care Team Providers Name Role Phone Unavailable [...]
--- OUTSIDE RECORDS SUMMARY | 2018-10-13 14:22 | XMS REPORT ---
[...] Status Dosage System Date Date Triamcinolone [facility] 21388562679 0.1 % August 17, Active 1 application Acetonide Externally 2018 to affected Twice a day area Results No Known Results Summary Purpose eClinicalWorks Submission
--- OUTSIDE RECORDS SUMMARY | 2018-10-13 14:22 | XMS REPORT ---
:1980 Author Organization eClinicalWorks Care Team Providers Name Role Phone [employer] Provider Role Unavailable Allergies No Known Allergies Problems Problem Type Condition Code Onset Dates Condition Status Problem Depression with anxiety F41.8 Active Problem Primary insomnia F51.01 Active Problem Allergic rhinitis J30.9 Active Problem BMI 30.0-30.9,adult Z68.30 Active Medications No Known Medications Results No Known Results Summary Purpose eClinicalWorks Submission
--- OUTSIDE RECORDS SUMMARY | 2018-10-13 14:22 | XMS REPORT ---
[...] End Status Dosage System Date Date Metoprolol [facility] 42289418100 25 MG Orally Active 1 tablet with Tartrate Twice a day food Clonazepam [facility] 23985094340 0.5 MG Orally Active 1 tablet at Once a day bedtime Triamcinolone [facility] 87626964926 0.1 % August 17, Active 1 application Acetonide Externally 2018 to affected Twice a day area Results No Known Results Summary Purpose eClinicalWorks Submission
--- OUTSIDE RECORDS SUMMARY | 2018-10-13 14:22 | XMS REPORT ---
[...] End Status Dosage System Date Date Metoprolol [facility] 23712866193 25 MG Orally Active 1 tablet with Tartrate Twice a day food Duloxetine HCl [facility] 18314344035 30 MG Orally Active 1 capsule Once a day Clonazepam [facility] 40375863387 0.5 MG Orally Active 1 tablet at Once a day bedtime BusPIRone HCl [facility] 59747017773 5 MG Orally Sept Active 1 tablet Twice a day 2017 Amoxicillin [facility] 74040039475 875 MG Orally Dec 19Dec Active 1 tablet every 12 hrs 2017 Triamcinolone [facility] 45418227353 0.1 % August 17, Active 1 application Acetonide Externally 2018 to affected Twice a day area Results Name Result Date Reference Range Unit Abnormality Flag Rapid Strep Summary Purpose eClinicalWorks Submission
[2018-10-13] MEDS ORDERED: NA CHLORIDE 0.9% 2,000 ML ONE (15:19)
[2018-10-13 15:28] LABS: Absolute Lymphocytes (CBC) 0.5 K/uL (0.7-4.9); Basophils % 0.1 % (0-1.3); Hematocrit 41.3 % (36.0-45.0); Lymphocytes % 4.1 % (15.3-44.8); RBC Red Blood Cell Count 4.54 M/uL (3.86-4.86)
[2018-10-13 15:34] LABS: Protime INR 1.04
--- NOTE | 2018-10-13 15:39 | RAD REPORT ---
EXAM DESCRIPTION: [place] Single View10/13/2018 3:28 pm CLINICAL HISTORY: Fever COMPARISON: May 2018 FINDINGS: The lungs appear clear of acute infiltrate. The heart is normal size IMPRESSION: No acute abnormalities displayed
[2018-10-13 15:44] LABS: ALT/SGPT 29 U/L (12-78); AST/SGOT 22 U/L (15-37); Albumin 3.7 g/dL (3.4-5.0); Alkaline Phosphatase 70 U/L (45-117); BUN Blood Urea Nitrogen 12 mg/dL (7-18); Bicarbonate 24 mmol/L (21-32); Bilirubin Direct 0.1 mg/dL (0-0.2); Bilirubin Total 0.3 mg/dL (0.2-1.0); Glucose Level 113 mg/dL (74-106); Lipase 141 U/L (73-393); Potassium 3.4 mmol/L (3.5-5.1); Protein, Total 8.1 g/dL (6.4-8.2); Sodium Level 139 mmol/L (136-145); Troponin (Emerg Dept Use Only) < 0.02 ng/mL (0.0-0.045)
[2018-10-13 15:56] LABS: Urine RBC <5 /HPF (NONE SEEN)
[2018-10-13 15:57] LABS: Urine Bacteria <20 /HPF (<20); Urine Culture Reflex Order NOT NEEDED
[2018-10-13] MEDS ORDERED: ACETAMINOPHEN 500 MG TAB ONE (16:15)
[2018-10-13 16:30] LABS: Blood Morphology Comment NOT SEEN (NOT SEEN); Platelet Estimate ADEQ; Urine White Blood Cell Casts OK
[2018-10-13] MEDS ORDERED: POTASSIUM 25 MEQ EFFERV TAB ONE (17:21)
[2018-10-13] MEDS ORDERED: NA CHLORIDE 0.9% 1,000 ML ONE (17:41)
[2018-10-13 18:11] LABS: Urine Blood NEGATIVE (NEG); Urine Glucose NEGATIVE (NEG); Urine Protein NEGATIVE (NEG)
--- NOTE | 2018-10-13 19:20 | EDPHYS ---
Physician Documentation [facility] Name: Blaire Horowitz Age: 38 yrs Sex: Female : 1980 Arrival Date: 10/13/2018 Time: 14:21 Bed 26 Private MD: ED Physician Mark Mercado HPI: 10/13 14:50 This 38 yrs old Female presents to ER via Ambulatory with complaints of cp Shortness Of Breath, Shoulder Pain, Fever. 14:50 The patient has shortness of breath at rest. cp 14:50 Onset: The symptoms/episode began/occurred today. Associated signs and symptoms: cp Pertinent positives: fever, upper back and shoulder pain, Pertinent negatives: chest pain, productive cough, vomiting, abdominal pain. Severity of symptoms: in the emergency department the symptoms are unchanged despite home interventions. 14:50 Patient reports having colonoscopy 3 days ago with hemorrhoidal banding. 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 - Social history:: Smoking status: Patient/guardian denies using tobacco. - Ebola Screening: : No symptoms or risks identified at this time. ROS: 14:55 Constitutional: Positive for low grade fever, Negative for poor PO intake. cp 14:55 Eyes: Negative for injury, pain, redness, and discharge. cp 14:55 ENT: Negative for drainage from ear(s), ear pain, sore throat, difficulty swallowing, difficulty handling secretions. 14:55 Neck: Negative for pain with movement, pain at rest, stiffness, swollen nodes. 14:55 Cardiovascular: Negative for chest pain, edema. 14:55 Respiratory: Positive for shortness of breath, Negative for cough, hemoptysis, wheezing. 14:55 Abdomen/GI: Negative for abdominal pain, vomiting, diarrhea, constipation, black/tarry stool, rectal bleeding. 14:55 Back: Positive for pain at rest, pain with movement, of the upper back and shoulders. 14:55 : Negative for urinary symptoms. 14:55 Skin: Negative for cellulitis, rash. 14:55 Neuro: Positive for headache, Negative for altered mental status, weakness. 14:55 All other systems are negative. Exam: 15:15 Constitutional: The patient appears in no acute distress, alert, awake, cp non-diaphoretic, non-toxic, well developed, well nourished. 15:15 Head/Face: Normocephalic, atraumatic. cp 15:15 Eyes: Periorbital structures: appear normal, Pupils: equal, round, and reactive to light and accomodation, Extraocular movements: intact throughout, Conjunctiva: normal, no exudate, no injection, Sclera: no appreciated abnormality, Lids and lashes: appear normal, bilaterally. 15:15 ENT: External ear(s): are unremarkable, Ear canal(s): are normal, clear, TM's: bulging, is not appreciated, bilaterally, dullness, bilaterally, erythema, is not appreciated, bilaterally, Nose: is normal, Mouth: Lips: moist, Oral mucosa: pink and intact, moist, Posterior pharynx: is normal, airway is patent, no erythema, no exudate. 15:15 Neck: ROM/movement: is normal, is supple, without pain, no range of motions limitations, no meningismus, no nuchal rigidity. 15:15 Chest/axilla: Inspection: normal, Palpation: is normal, no crepitus, no tenderness. 15:15 Cardiovascular: Rate: tachycardic, Rhythm: regular, Edema: is not appreciated, JVD: is not appreciated. 15:15 Respiratory: the patient does not display signs of respiratory distress, Respirations: normal, no use of accessory muscles, no retractions, no splinting, no tachypnea, labored breathing, is not present, Breath sounds: are clear throughout, no decreased breath sounds, no stridor, no wheezing. 15:15 Abdomen/GI: Inspection: abdomen appears normal, Bowel sounds: active, all quadrants, Palpation: abdomen is soft and non-tender, in all quadrants, rebound tenderness, is not appreciated, voluntary guarding, is not appreciated, involuntary guarding, is not appreciated. 15:15 Back: pain, is absent, ROM is painful, with all movement. 15:15 Musculoskeletal/extremity: Exam is negative for decreased range of motion, edema, erythema, injury, ROM: intact in all extremities, Sensation intact. 15:15 Skin: cellulitis, is not appreciated, no rash present. 15:15 Neuro: Orientation: to person, place \T\ time. Mentation: Cerebellar function: is grossly normal, Motor: is normal, Sensation: is normal. 15:30 ECG was reviewed by the Attending Physician. cp Vital Signs: 14:36 BP 138 / 96; Pulse 150; Resp 18; Temp 100.1; Pulse Ox 98% on R/A; Weight 72.12 kg; la1 Height 5 ft. 2 in. (157.48 cm); 15:27 BP 129 / 85; Pulse 129; Resp 18; Pulse Ox 98% on R/A; la1 17:19 BP 105 / 74; Pulse 131; Resp 15; Pulse Ox 97% on R/A; rv 18:33 BP 109 / 80; Pulse 125; Resp 18; Temp 99.4(O); Pulse Ox 100% on R/A; la1 19:15 BP 114 / 78; Pulse 121; Resp 18; Pulse Ox 98% on R/A; la1 19:18 BP 114 / 78; Pulse 109; Resp 20; Pulse Ox 98% on R/A; la1 14:36 Body Mass Index 29.08 (72.12 kg, 157.48 cm) la1 MDM: 14:42 Patient medically screened. cp 15:00 Differential diagnosis: pneumonia, Sepsis UTI, GI bleed, perforated colon. cp 19:18 Data reviewed: vital signs, nurses notes, lab test result(s), EKG, radiologic studies, cp plain films. 19:18 Test interpretation: by ED physician or midlevel provider: ECG, plain radiologic cp studies. Counseling: I had a detailed discussion with the patient and/or guardian regarding: the historical points, exam findings, and any diagnostic results supporting the discharge/admit diagnosis, lab results, radiology results, the need for outpatient follow up, a family practitioner, to return to the emergency department if symptoms worsen or persist or if there are any questions or concerns that arise at home. Response to treatment: the patient's symptoms have markedly improved after treatment, patient is well hydrated. VSS. Symptoms improved with meds. Will discharge to home for continued monitoring. 10/13 14:46 Order name: Urine Dipstick--Ancillary (enter results); Complete Time: 18:54 eb 10/13 18:51 Interpretation: Normal except: UESTR TRACE. 10/13 14:46 Order name: Urine --Ancillary (enter results); Complete Time: 18:54 eb 10/13 14:46 Order name: Urine Culture 10/13 14:46 Order name: Basic Metabolic Panel; Complete Time: 15:53 10/13 15:50 Interpretation: Normal except: K 3.4; GLUC 113; GFR 73. 10/13 14:46 Order name: Blood Culture Adult (2) 10/13 14:46 Order name: CBC with Diff 10/13 15:51 Interpretation: WBC 12.4; PETE% 91.4; LYM% 4.1; NEUT A 11.3; LYMA 0.5. 10/13 14:46 Order name: Lactate; Complete Time: 15:53 10/13 14:46 Order name: LFT's; Complete Time: 15:53 10/13 15:54 Interpretation: Normal except: GLOB 4.4; A/G 0.8. 10/13 14:46 Order name: Lipase; Complete Time: 15:53 10/13 14:46 Order name: Procalcitonin; Complete Time: 16:14 10/13 16:14 Interpretation: Reviewed. 10/13 14:46 Order name: Protime (+inr); Complete Time: 15:53 10/13 14:46 Order name: Ptt, Activated; Complete Time: 15:53 10/13 14:46 Order name: Troponin (emerg Dept Use Only); Complete Time: 15:53 10/13 14:46 Order name: Urine Microscopic Only; Complete Time: 16:05 10/13 16:04 Interpretation: Reviewed. 10/13 14:46 Order name: Urine Test (obtain specimen); Complete Time: 15:40 10/13 14:46 Order name: Chest Single View XRAY; Complete Time: 15:53 10/13 14:46 Order name: Accucheck; Complete Time: 15:29 10/13 14:46 Order name: Cardiac monitoring; Complete Time: 15:25 10/13 14:46 Order name: EKG - Nurse/Tech; Complete Time: 15:25 10/13 14:46 Order name: IV Saline Lock - Large Bore; Complete Time: 15:29 10/13 14:46 Order name: Labs collected and sent; Complete Time: 15:29 10/13 14:46 Order name: O2 Per Protocol; Complete Time: 15:25 10/13 14:46 Order name: O2 Sat Monitoring; Complete Time: 15:25 10/13 16:28 Order name: D-Dimer; Complete Time: 16:59 10/13 16:28 Order name: LAB Add On 10/13 16:30 Order name: CBC Smear Scan; Complete Time: 16:59 [facility] 10/13 14:46 Order name: Urine Dipstick-Ancillary (obtain specimen); Complete Time: 15:29 10/13 16:57 Order name: PO challenge; Complete Time: 17:16 cp EC:30 Rate is 127 beats/min. Rhythm is regular. ID interval is normal. QRS interval is cp normal. QT interval is normal. Interpreted by me. Reviewed by me. Administered Medications: 15:05 Drug: NS 0.9% (30 ml/kg) 30 ml/kg Route: IV; Rate: bolus; Site: right antecubital; la1 18:21 Follow up: IV Status: Completed infusion rv 19:45 Follow up: IV Status: Completed infusion la1 16:00 Drug: Tylenol 1000 mg Route: PO; rv 17:18 Follow up: Response: Pain is decreased rv 17:11 Drug: Potassium Effervescent Tablet 25 mEq Route: PO; rv 17:26 Follow up: Response: No adverse reaction rv 17:26 Drug: NS 0.9% 1000 ml Route: IV; Rate: 1 bolus; Site: right antecubital; rv 18:21 Follow up: IV Status: Completed infusion rv 19:45 Follow up: IV Status: Completed infusion la1 Disposition: 10/14 11:14 Co-signature as Attending Physician, Mark Mercado MD I agree with the assessment and saranya plan of care. Disposition: 10/13/18 19:19 Discharged to Home. Impression: Back pain. - Condition is Stable. - Discharge Instructions: Back Pain, Adult, Fever, Adult, Musculoskeletal Pain. - Medication Reconciliation Form, Thank You Letter, Antibiotic Education, Prescription Opioid Use form. - Follow up: Private Physician; When: 1 - 2 days; Reason: Recheck today's complaints. - Problem is new. - Symptoms have improved. Signatures: Dispatcher [employer] EDMS Mark Mercado MD MD cha Attema, Lee RN RN la1 Mark Gonzalez PA PA cp Eulogio Muniz, RN RN rv Corrections: (The following items were deleted from the chart) 10/13 15:54 15:51 WBC 12.4; PETE% 91.4; LYM% 4.1; NEUT A 11.3. [facility] 17:34 15:30 ECG was reviewed by the Attending Physician. [facility] 19:45 19:19 10/13/2018 19:19 Discharged to Home. Impression: Back pain. Condition is Stable. la1 Forms are Medication Reconciliation Form, Thank You Letter, Antibiotic Education, Prescription Opioid Use. Follow up: Private Physician; When: 1 - 2 days; Reason: Recheck today's complaints. Problem is new. Symptoms have improved. 10/14 17:39 10/13 14:50 Patient reports having colonoscopy [address] Dixon w/o cp complications. Denies blood in stool or rectal bleeding. cp
--- NOTE | 2018-10-13 19:20 | ER ---
Nurse's Notes [facility] Name: Blaire Horowitz Age: 38 yrs Sex: Female : 1980 Arrival Date: 10/13/2018 Time: 14:21 Bed 26 Private MD: Diagnosis: Back pain Presentation: 10/13 14:34 Presenting complaint: Patient states: Last week I had a UTI then I had la1 hemorrhoid banding and a colonoscopy. Today I started having pain in my back/shoulder area and fever. It was 102 but I took tylenol at 1300. Transition of care: patient was not received from another setting of care. Onset of symptoms was October 13, 2018. Risk Assessment: Do you want to hurt yourself or someone else? Patient reports no desire to harm self or others. Initial Sepsis Screen: Does the patient meet any 2 criteria? HR > 90 bpm. Does the patient have a suspected source of infection? Yes: Other: recent surgery If YES to both, name of provider notified: Mark DALY 14:34 Method Of Arrival: Ambulatory la1 14:34 Acuity: DAVI 2 la1 17:19 Care prior to arrival: None. rv Triage Assessment: 17:20 Respiratory: Reports shortness of breath at rest Onset: The symptoms/episode rv began/occurred gradually, the patient has mild shortness of breath. 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 - Social history:: Smoking status: Patient/guardian denies using tobacco. - Ebola Screening: : No symptoms or risks identified at this time. Screenin:28 Abuse screen: Denies threats or abuse. Nutritional screening: No deficits noted. la1 Tuberculosis screening: No symptoms or risk factors identified. Fall Risk None identified. Assessment: 15:28 General: Appears in no apparent distress. Behavior is calm, cooperative. Pain: la1 Complains of pain in left scapular area, right scapular area, left subscapular area and right subscapular area. Neuro: Level of Consciousness is awake, alert, obeys commands, Oriented to person, place, time, situation. Cardiovascular: Heart tones S1 S2 present Capillary refill < 3 seconds Patient's skin is warm and dry. Rhythm is sinus tachycardia. Respiratory: Airway is patent Trachea midline Respiratory effort is even, unlabored, Respiratory pattern is regular, symmetrical, Breath sounds are clear bilaterally. GI: Abdomen is round non-distended, Bowel sounds present X 4 quads. Abd is soft and non tender X 4 quads. : No signs and/or symptoms were reported regarding the genitourinary system. 15:52 Reassessment: Patient appears in no apparent distress at this time. No changes from la1 previously documented assessment. Patient and/or family updated on plan of care and expected duration. Pain level reassessed. Patient is alert, oriented x 3, equal unlabored respirations, skin warm/dry/pink. 17:20 Reassessment: Mark Page went to the room, explained the report and blood results to rv the patient and family. patient is feeling better as of the moment. 18:33 Reassessment: Patient appears in no apparent distress at this time. No changes from la1 previously documented assessment. Patient and/or family updated on plan of care and expected duration. Pain level reassessed. Patient is alert, oriented x 3, equal unlabored respirations, skin warm/dry/pink. Vital Signs: 14:36 BP 138 / 96; Pulse 150; Resp 18; Temp 100.1; Pulse Ox 98% on R/A; Weight 72.12 kg; la1 Height 5 ft. 2 in. (157.48 cm); 15:27 BP 129 / 85; Pulse 129; Resp 18; Pulse Ox 98% on R/A; la1 17:19 BP 105 / 74; Pulse 131; Resp 15; Pulse Ox 97% on R/A; rv 18:33 BP 109 / 80; Pulse 125; Resp 18; Temp 99.4(O); Pulse Ox 100% on R/A; la1 19:15 BP 114 / 78; Pulse 121; Resp 18; Pulse Ox 98% on R/A; la1 19:18 BP 114 / 78; Pulse 109; Resp 20; Pulse Ox 98% on R/A; la1 14:36 Body Mass Index 29.08 (72.12 kg, 157.48 cm) la1 ED Course: 14:21 Patient arrived in ED. as 14:31 Mark Gonzalez PA is PHCP. cp 14:31 Mark Mercado MD is Attending Physician. cp 14:34 Kingsley Guadalupe, RN is Primary Nurse. la1 14:35 Triage completed. la1 14:37 Arm band placed on right wrist. la1 15:28 Call light in reach. Side rails up X 1. la1 15:28 Inserted saline lock: 20 gauge in right antecubital area, using aseptic technique. la1 Blood collected. 15:29 Chest Single View XRAY In Process Unspecified. EDMS 19:44 No provider procedures requiring assistance completed. IV discontinued, intact, la1 bleeding controlled, No redness/swelling at site. Pressure dressing applied. Administered Medications: 15:05 Drug: NS 0.9% (30 ml/kg) 30 ml/kg Route: IV; Rate: bolus; Site: right antecubital; la1 18:21 Follow up: IV Status: Completed infusion rv 19:45 Follow up: IV Status: Completed infusion la1 16:00 Drug: Tylenol 1000 mg Route: PO; rv 17:18 Follow up: Response: Pain is decreased rv 17:11 Drug: Potassium Effervescent Tablet 25 mEq Route: PO; rv 17:26 Follow up: Response: No adverse reaction rv 17:26 Drug: NS 0.9% 1000 ml Route: IV; Rate: 1 bolus; Site: right antecubital; rv 18:21 Follow up: IV Status: Completed infusion rv 19:45 Follow up: IV Status: Completed infusion la1 Outcome: 19:19 Discharge ordered by MD. cp 19:44 Discharged to home ambulatory. la1 19:44 Condition: good 19:44 Condition: stable 19:44 Discharge instructions given to patient, Instructed on discharge instructions, follow up and referral plans. medication usage, Demonstrated understanding of instructions, follow-up care. 19:45 Patient left the ED. la1 Signatures: Dispatcher [employer] EDMS Ankita Engle Lee, RN RN la1 Mark Gonzalez PA PA cp Eulogio Muniz RN RN rv
[2018-10-13 19:53] VITALS: TEMP 99.4
[2018-10-13 19:54] VITALS: BP 114/78; O2SAT 98
--- NOTE | 2018-10-14 21:14 | EKG ---
Test Date: 2018-10-13 Test Time: 15:21:06 [employer] Manager: MIKAELA MEASUREMENT RESULTS: Intervals: Rate: 127 MI: 148 QRSD: 66 QT: 286 QTc: 415 [place]: P: 48 MI: 148 QRS: 48 T: 22 INTERPRETIVE STATEMENTS: Sinus tachycardia Otherwise normal ECG Compared to ECG 05/28/2018 22:35:39 Myocardial infarct finding no longer present Electronically Signed On 10-14-18 21:13:38 CDT by Channing Anders
== END 2018-10-13 19:45 | disposition home or self-care (01) ==
LOC: ER 14:20
DX: M54.9 Dorsalgia, unspecified (principal)
CPT/HCPCS: 36415; 71045; 80048; 80076; 81003; 81015; 81025; 83605; 83690; 84145; 84484; 85025; 85379; 85610; 85730; 87040; 87086; 87088; 93005; 96365; 96366; 99284; J7030